=== PATIENT | male | born 1990 | race Caucasian/White ===

== ENCOUNTER 2016-12-23 21:03 | Emergency (ER) | payer SELFPAY ==
[~2016-12-23] VITALS: Ht 172.7 cm; Wt 107.5 kg
[2016-12-23 21:17] LABS: URINE BILIRUBIN - DIPSTICK NEGATIVE (NEG); URINE BLOOD NEGATIVE (NEG)
--- NOTE | 2016-12-23 21:22 | Emergency Room Report ---
History of Present Illness Time Seen by 2106 Presenting Problem in Triage Pt arrived:Walked Presenting Problem:SATURDAY NIGHT HIS DAUGHTER KICKED HIM IN HIS GENTITALS. IT HAS BEEN SWOLLEN. HE THERE AGAIN TODAY. ABOUT 30-45 MINS AGO HE BEGAN BEING IN SO MUCH PAIN HE COULD NOT HARDLY WALK. 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 N Clinical Suspician of Infection? N Mental Status: 1 - Regular (Normal Baseline) Sepsis Risk:Low Sepsis Risk Have you (or family members/close friends) recently traveled outside the [place]? N If Yes, where/when: Have you had exposure to infectious disease within the past month? N TB? Other? Specify: Source patient, RN notes reviewed, family, old records Exam Limitations no limitations Comment pt with acute injury to tresticle over the last few days with pain and swelling - no penile d/c/no lesions and no hematuria Cardiac Chest Pain Chest pain indicative of cardiac No Timing/Duration this evening Severity moderate ALLERGIES Coded Allergies: No Known Allergies (12/23/16) Home Medications Reported Medications Ranitidine Hcl (Zantac) 150 MG PO BID History Medical History General CAD? No Angina: No GA: No Hypertension? No Hyperlipidemia? No CHF? No DVT? No PE? No COPD? No Asthma? No Anemia? No GERD? No Gastric ulcers? No GI Bleed? No Hernia? No Thyroid Problems? No Hypothyroidism? No CVA? No Seizures? No Diabetes? No Renal Insuffiency? No End Stage Renal Disease? No UTI? No Stones? No BPH? No GB Disease: No Nephritic Syndrome? No Asplenia? No Hepatitis? No Sickle Cell Disease? No Arthritis? No Migraines? No Cataracts? No Glaucoma? No MRSA? No HIV? No TB? No Anxiety? No Depression? No Cancer? No More? No Immunization Hx Ped.Immunizations UTD Yes DT/Tetanus Unknown Surgical Hx Previous Surgery?Y ADENOIDS Social History Smoking Hx Smoker: Current Every Day Smoker Tobacco: Yes Type Cigarettes Packs/day < 1 Pack Alcohol Alcohol: No Drugs none Review of Systems All Other Systems Reviewed and Negative Constitutional denies fever Eyes denies drainage ENT denies: ear pain, epistaxis, throat pain. Respiratory denies cough, denies shortness of breath, denies wheezing Cardiovascular denies chest pain, denies syncope Gastrointestinal see HPI, denies abdominal pain, denies diarrhea, nausea, denies vomiting Genitourinary see HPI, scrotal/testicular pain. denies: dysuria, frequency, hesitancy, hematuria, genital lesions. Musculoskeletal denies back pain, denies neck pain Skin denies rash Psychiatric/Neurological denies headache, denies seizure Physical Exam Vital Signs Vital Signs Date Time Temp Pulse Resp B/P Pulse O2 O2 Flow FiO2 Ox Delivery Rate 12/24 2119 20 12/24 2107 123 19 97 - WBC >12,000 or <4,000 or 10% bands? 2 or more SIRS Criteria Met? B/P: MAP: Creatinine >2.0? UA output<0.5ml/kg/hr for 2 hrs? Platelet count >100,000? Lactate >2.0mmol/1? INR >1.2 or PTT > than 60 sec? Evidence of Organ Dysfunction? Provider documented clinical suspician of infection? N Sepsis Criteria Count: 1 Sepsis Risk: Low Sepsis Risk General Appearance no apparent distress Eye Exam - bilateral eye PERRL, bilateral eye EOMI Ear, Nose, Throat normal ENT inspection Neck non-tender Respiratory Status No: respiratory distress. Cardiovascular regular rate/rhythm Peripheral Pulses Pulses normal Yes Gastrointestinal soft Extremities normal inspection Strength 4 Upper Ext (L), 4 Upper Ext (R), 4 Lower Ext (L), 4 Lower Ext (R) Male Genitalia no hernia, testicular tenderness Neurologic alert, parent educator II-XII nml as tested, no motor/sensory deficits Reflexes Reflexes normal No Mental status normal mood/affect Skin intact Medical Decision Making LABS/Meds/Orders Pt receiving controlled substance in ED? No Results/Orders Laboratory Tests 12/23/162119: Sodium 139, Potassium 4.2, Chloride 100, Carbon Dioxide 28, BUN 9, Creatinine 1.1, Estimated Creat Clear 156, Estimated GFR (MDRD) 82, Glucose 108 H, Calcium 9.1, Total Bilirubin 0.2, AST 27, ALT 62, Alkaline Phosphatase 146 H, Total Protein 8.2, Albumin 3.9, Globulin 4.3 H, Albumin/Globulin Ratio 0.9 L, WBC 7.4, RBC 5.12, Hgb 14.5, Hct 41.9 L, MCV 81.9 L, RDW 12.9, Plt Count 341, MPV 7.5, Gran % 46.6, Gran # 3.4, Lymphocytes % 37.8, Monocytes % 11.4 H, Eosinophils % 3.0, Basophils % 1.4, Lymphocytes # 2.8, Monocytes # 0.8, Eosinophils # 0.2, Basophils # 0.1, PUBS MCHC 34.7, MCH 28.4 12/23/162109: Urine Color YELLOW, Urine Appearance SL CLOUDY, Urine pH 6.0, Ur Specific [place] 1.025, Urine Protein NEGATIVE, Urine Ketones 1+ H, Urine Blood NEGATIVE , Urine Nitrate NEGATIVE, Urine Bilirubin NEGATIVE, Urine Urobilinogen 1.0, Ur Leukocyte Esterase NEGATIVE, Urine WBC 3-5, Amorphous Sediment TRACE, Hyaline Casts 5-10, Urine Mucus 4+, Urine Glucose NEGATIVE Current Medication Orders Sig/Shiv Start time Last Medication Dose Route Stop Time Status Admin Acetaminophen/ 1 ASHLEY ONCE ONE 12/23 2229 AC Codeine Phosphate PO 12/23 2230 Hydrocodone Bitart/ 1 TAB ONCE ONE 12/23 2229 AC Acetaminophen PO 12/23 2230 Ketorolac 30 MG ONCE ONE 12/23 2229 AC Tromethamine IV 12/23 2230 Levofloxacin 500 MG ONCE ONE 12/23 2229 AC PO 12/23 2230 Acetaminophen/ 0 .STK-MED ONE 12/23 2226 DC Codeine Phosphate PO Hydrocodone Bitart/ 0 .STK-MED ONE 12/23 2226 DC Acetaminophen PO Ketorolac 0 .STK-MED ONE 12/23 2226 DC Tromethamine .ROUTE Ondansetron HCl 0 .STK-MED ONE 12/24 2115 DC .ROUTE Hydromorphone HCl 1 MG ONCE ONE 12/23 2114 DC 12/23 IV 12/23 Hydromorphone HCl 0 .STK-MED ONE 12/23 2114 DC .ROUTE Ondansetron HCl 4 MG ONCE ONE 12/23 2114 DC 12/23 IV 12/23 Sodium Chloride 10 ML PRN PRN 12/23 2114 AC IV 12/25 2111 Orders Procedure Date/time Status US SCROTUM 12/23 2112 Active IV SALINE LOCK 12/23 2112 Active URINALYSIS/COMPLETE 12/23 2112 Complete COMPLETE METABOLIC PANEL 12/23 2112 Complete CBC WITH AUTO DIFF 12/23 2112 Complete XRAY/CT/US XRAY/CT/US Ultrasound scrotal US Interpretation by discussed w/radiologist US results epididymitis Departure Departure Time of Disposition 2225 Disposition DC Home or Self Care(routine) Clinical Impression Primary Impression: Epididymitis, left Condition STABLE Referrals Carissa MONTALVO,Sreedhar Vegas MD,Nathanael Patient Instructions DI for Epididymitis Additional Instructions ice and support clothes and see pcp and urology for follow up Discharge Counseling Counseled pt/family regarding diagnosis, test results, medications/RX, follow up needs Prescriptions Current Visit Scripts Ciprofloxacin HCl (Cipro 500MG TAB) 500 MG PO BID #14 TAB ED Critical Care Critical Care No at 1528
[2016-12-23 21:30] LABS: HEMOGLOBIN 14.5 g/dL (14.1-18.0); LYMPH # 2.8 K/mm3 (0.7-4.5); LYMPH % 37.8 % (10-50)
[2016-12-23 22:50] VITALS: BP 137/73
--- NOTE | 2016-12-23 23:20 | RADIOLOGY REPORT PS360 ---
US SCROTUM HISTORY: swelling /pain lt testicle swelling and pain at the left testicle. Recent trauma and left testicular injury 3 days ago Patient Age: 26 years: Male Ordering Physician: Xena Helms MD TECHNIQUE: Ultrasound scrotum bilateral COMPARISON :None FINDINGS LEFT TESTICLE. Hyperemia is seen at the upper portion the left testicle.. Flow is not as pronounced but adequate towards the lower pole. There is a focal ovoid area of varying echogenicity which spans up to 1.6 cm maximally x 1 cm.. X 1.2 cm. These ovoid abnormality It has a slight hypoechoic rim with slightly hyper echoic central portion. With history of recent trauma this could reflect focal trauma/focal hematoma at the inferior testicle-. However follow up ultrasound in several weeks will very important important to exclude underlying testicular mass lesion here. A focal area of inflammation less likely. Urology follow-up recommended. These findings briefly discussed with Dr. Helms Left testicle is slightly larger than the right.. Surprised is not more swollen and there has been significant trauma here. Left testicle measuring just over 4 cm x 2.7 cm pelvis 3.2 cm Small hydrocele with minimal fluid surrounding the left testicle as well as surrounding the left epididymis. A likely related to this recent trauma left hemiscrotum. Less likely reflection of inflammation. . The head left epididymis is mildly enlargedl 1.4 cm x 0.65 cm RIGHT TESTICLE appears normal. It measures 3.5 seem in length as 3.1 cm x 2.2 cm.. Homogeneous echo pattern. Normal color Doppler flow at right testicle. Epididymis appears normal. It measures 6.8 mm x 8.2 mm. IMPRESSION: 1. LEFT TESTICLE.. Abnormal 1.6 cm x 1.2 cm ovoid focus at the lower pole left testicle. With given history of trauma of 3 days ago,, this could reflect a localized hematoma or contusion of the testicle. However urology consult this week, with follow up ultrasound over several weeks will be very important to exclude any persistent underlying mass lesion here. There is hyperemia at the upper portion left testicle, with less prominent but adequate flow towards the lower pole & about this abnormal area inferior left testicle. Small left left hydrocele.. Fluid surrounds the testicle as well as the generous head left epididymis Again Urology consult recommended to further evaluate and follow these abnormalities of left testicle. 2. RIGHT TESTICLE appears normal. Left testicle only slightly larger than right
--- OUTSIDE RECORDS SUMMARY | 2017-01-03 01:38 | External Medical Summary Rpt | CCD ---
Author Author , LAN MONTENEGRO Address Unknown Phone miguel .elicit Care Team Providers Care Admission Nurse Coordinator Name Role Phone LORRAINE VELA, LORRAINE VELA Unavailable [facility] Purpose Continuity of Care Document - 07-18-2015 through 2016 Problems Code Diagnosis DOS Provider Status J309 ALLERGIC 07-18-2015 [facility] K115 SIALOLITHIA 07-18-2015 [facility] Results Labs Lab Lab Date Result Refere Interp Status Commen Order Detail nces retati t Range on Urinalysis dipstick W Reflex Microscopic panel in Urine (12-23-2016 21:10) Appeara SL CLEAR complet nce of 017 CLOUDY ed Urine 21:10 Amorpho TRACE NONE complet us 017 ed sedimen 21:10 t [Presen ce] in Urine sedimen t by Light microsc opy Bilirub NEGATIV NEG complet in 017 E ed [Presen 21:10 ce] in Urine by Test strip Erythro NEGATIV NEG complet cytes 017 E ed [Presen 21:10 ce] in Urine Color YELLOW YELLOW complet of 017 ed Urine 21:10 Hyaline 5-10 NONE complet casts 017 ed [Presen 21:10 ce] in Urine sedimen t by Light microsc opy Ketones 1+ NEG Abnorma complet 017 l ed [Presen 21:10 ce] in Urine by Automat ed test strip Mucus NEGATIV NEG complet [Presen 017 E ed ce] in 21:10 Urine sedimen t by Light microsc opy Mucus 4+ NONE complet [Presen 017 ed ce] in 21:10 Urine sedimen t by Light microsc opy Nitrite NEGATIV NEG complet 017 E ed [Presen 21:10 ce] in Urine by Test strip Urobili 1.0 NEG complet nogen 017 ed [Presen 21:10 ce] in Urine by Test strip Leukocy 3-5 O complet fitz 017 wbc/hpf ed [#/volu 21:10 me] in Urine Encounters Encounter Start End Date Code Location Performer Type Date OFFICE [address] TAMMIE VELA OUTPATIEN [address]
--- OUTSIDE RECORDS SUMMARY | 2017-01-03 01:38 | External Medical Summary Rpt | CCD ---
Author Author , LAN MONTENEGRO Address Unknown Phone [email or web address] Care Team Providers Care Dog Raiser Name Role Phone LORRAINE VELA, LORRAINE VELA Unavailable Unavailable [facility], [facility] Purpose Continuity of Care Document - 07-18-2015 through 2016 Problems Code Diagnosis DOS Provider Status J309 ALLERGIC 07-18-2015 [facility]NSPEC[facility]IED [facility]PITAL K115 SIALOLITHIA 07-18-2015 [facility] Results Labs Lab Lab Date Result Refere [...] Date Code Location Performer Type Date OFFICE [address] TAMMIE VELA OUTPATIEN [address]
--- OUTSIDE RECORDS SUMMARY | 2017-01-03 01:39 | External Medical Summary Rpt | CCD ---
Author Author , LAN MONTENEGRO Address Unknown Phone [email or web address] Immunization Name Date Rout CVX Reac Dose Comm Prov Is Faci e tion ent ider Refu lity Give sed n Hep 04-2 8 999 Hist H149 No H149 B, 6-20 oric ped/ 05 al adol Info rmat ion - Sour ce Unsp ecif ied Hep 11-1 8 999 Hist H149 No H149 B, 5-20 oric ped/ 04 al adol Info rmat ion - Sour ce Unsp ecif ied Hep 10-1 8 999 Hist H149 No H149 B, 4-20 oric ped/ 04 al adol Info rmat ion - Sour ce Unsp ecif ied Td 08-0 9 999 Hist H149 No H149 (ede 6-20 oric lt), 04 al Info adso rmat rbed ion - Sour ce Unsp ecif ied
--- OUTSIDE RECORDS SUMMARY | 2017-01-03 01:39 | External Medical Summary Rpt | CCD ---
Author Author LAN Address Unknown Phone [email or web address] Care Team Providers Care Or First Assist Registered Nurse Name Role Phone LORRAINE STEWART Unavailable Unavailable [facility] Unavailable [facility], [facility] Purpose Continuity of Care Document - 07-18-2015 through 2016 Problems Code Diagnosis DOS Provider Status J309 ALLERGIC 07-18-2015 [facility]PEC[facility]IED [facility] K115 SIALOLITHIA 07-18-2015 [facility] Encounters Encounter Start End Date Code Location Performer Type Date OFFICE [address] TAMMIE VELA OUTPATIEN [address] MINUTES
--- OUTSIDE RECORDS SUMMARY | 2017-01-03 01:39 | External Medical Summary Rpt | CCD ---
Author Author LAN Address Unknown Phone Care Team Providers Care Logistics Planning Manager Name Role Phone LORRAINE STEWART Unavailable Unavailable [facility] Unavailable [facility], [facility] Purpose Continuity of Care Document - 07-18-2015 through 2016 Problems Code Diagnosis DOS Provider Status J309 ALLERGIC 07-18-2015 [facility]PEC[facility]IED [facility] K115 SIALOLITHIA 07-18-2015 [facility] Encounters Encounter Start End Date Code Location Performer Type Date OFFICE [address] TAMMIE VELA OUTPATIEN [address] MINUTES
--- OUTSIDE RECORDS SUMMARY | 2017-01-03 01:39 | External Medical Summary Rpt | CCD ---
Author Author , LAN MONTENEGRO Address Unknown Phone [email or web address] Immunization Name Date Rout CVX Reac Dose [...]
== END 2016-12-23 22:50 | disposition home or self-care (01) ==
LOC: ER 21:03
PROVIDERS: Emergency Medicine
DX: N45.1 Epididymitis (principal); W50.1XXA Accidental kick by another person, initial encounter; Y92.019 Unspecified place in single-family (private) house as the place of occurrence of the external cause